=== PATIENT | female | born 1970 | race Caucasian/White ===

== ENCOUNTER 2017-12-08 08:37 | Emergency (ER) | payer OTHER ==
[~2017-12-08] VITALS: Ht 162.6 cm; Wt 102.0 kg
[2017-12-08 09:04] LABS: HEMATOCRIT 43.9 % (36.0-46.0); HEMOGLOBIN 14.2 G/DL (11.9-15.5); MCH 25.7 PG (29.0-34.0); MCHC 32.3 G/DL (30.0-36.0); MCV 79.4 FL (83-99); PLATELET COUNT 300 K/uL (156-360); RBC DIS.WIDTH-SD 45.6 % (39-53); RED BLOOD COUNT 5.53 M/uL (3.80-5.20); WHITE BLOOD COUNT 7.3 K/uL (4.1-10.2)
[2017-12-08 09:12] LABS: ALBUMIN 4.5 g/dL (3.2-4.8); CHLORIDE 100 mEq/L (99-109); POTASSIUM 3.8 mEq/L (3.7-5.4); SODIUM 138 mEq/L (136-147)
[2017-12-08 09:14] LABS: GLUCOSE 128 mg/dL (70-99)
[2017-12-08 09:16] LABS: TOTAL BILIRUBIN 0.8 mg/dL (0.0-1.0)
[2017-12-08 09:18] LABS: ALKALINE PHOSPHATASE 135 IU/L (3-129); CREATININE 0.9 mg/dL (0.6-1.3); GFR ESTIMATE (CALCULATED) > 59 mL/min/
[2017-12-08 09:19] LABS: UREA NITROGEN (BUN) 19 mg/dL (9-23)
[2017-12-08 09:20] LABS: AST (GOT) 33 IU/L (2-34)
[2017-12-08 09:21] LABS: ALT (GPT) 29 IU/L (3-49)
[2017-12-08 09:27] LABS: QUANTITATIVE HCG < 4.0 MIU/ML
[2017-12-08 10:20] LABS: APPEARANCE CLOUDY ((CLEAR)); BILIRUBIN SMALL; BLOOD NEGATIVE; COLOR AMBER ((YELLOW)); GLUCOSE (STRIP) NEGATIVE; KETONES 20; LEUKOCYTES NEGATIVE; NITRITE NEGATIVE; PROTEIN (STRIP) 100; SPECIFIC GRAVITY 1.033 (1.000-1.030)
[2017-12-08 10:40] LABS: RED BLOOD CELLS NONE SEEN /HPF (0-5); WHITE BLOOD CELLS NONE SEEN /HPF (0-5)
[2017-12-08 10:41] LABS: BACTERIA 2+ /HPF; EPITHELIAL CELLS 2+ /HPF; MUCUS 2+ /LPF; UCUL ADDED? YES
[2017-12-08] MEDS ORDERED: ZOFRAN ODT4 MG PO (12:59)
[2017-12-08] MEDS ORDERED: IMODIUM A-D2 M2 PO (12:59)
[2017-12-08] MEDS ORDERED: BENTYL20 MG PO (12:59)
[2017-12-08] MEDS ORDERED: PROTONIX40 MG PO (13:37)
[2017-12-08 13:45] VITALS: BP 118/67
== END 2017-12-08 13:52 | disposition home or self-care (01) ==
LOC: EME 08:37
DX: R10.84 Generalized abdominal pain (principal); R11.2 Nausea with vomiting, unspecified; Z88.5 Allergy status to narcotic agent
CPT/HCPCS: 80053; 81003; 84702; 85027; 87086; 99281; 99285; J1885; J2405; J2765; J7030